=== PATIENT | male | born 1960 | race Caucasian/White ===

== ENCOUNTER → 2019-11-03 | Outpatient (CLI) | payer BC ==
[~2019-11-03] MED LIST: ALBU90OI6 INH; HYDACE5 PO; RXHYDACE PO
[2019-11-03 18:45] LABS: Influenza A Negative (NEGATIVE); Influenza B Negative (NEGATIVE)
== END | disposition home or self-care (01) ==
LOC: LAB 16:31 → LAB SHORT 16:31
PROVIDERS: Family Medicine
DX: R05 Cough (principal); R50.9 Fever, unspecified
CPT/HCPCS: 87804